=== PATIENT | male | born 1995 | race Caucasian/White ===

== ENCOUNTER 2024-09-20 09:38 | Emergency (ER) | payer OTHER, SELFPAY ==
[2024-09-20 09:44] VITALS: BP 107/66
--- NOTE | 2024-09-20 09:59 | ED.GENMED ---
History of Present Illness
General
Chief Complaint: Abdominal Symptoms
Source: patient
Exam Limitations: none
Time Seen by Provider: 09/20/24 09:49
History of Present Illness
History of Present Illness:
29yoM with no significant past medical history presenting with his father for evaluation of vomiting. Patient ate a peanut butter sandwich around 9 PM last night. About 30 minutes later, he started to have some discomfort in his abdomen with
queasiness. He tried to go to bed but woke up around 11 PM with vomiting. He has been vomiting continuously since that time and estimates that he has had about 50 episode of vomiting. He also is having diarrhea and had about 15 episodes as well
as some abdominal discomfort. He believes that he has food poisoning. Patient denies any fevers, hematemesis, hematochezia, URI symptoms, recent travel. Previous abdominal surgeries include an appendectomy.
Phy Exam
General Physical Exam
General Presentation: well appearing and no apparent distress
General age: appears stated age
General Skin: warm and dry
General Habitus: normal
General Mental: alert
ENT Exam
ENT Exam: normocephalic
Cardiovascular Exam
Cardiovascular Exam: regular rate/rhythm and no murmur
Pulmonary Exam
Pulmonary Exam: lungs clear, no respiratory distress, no rales, no crackles, no rhonchi and no wheezing
Gastrointestinal Exam
Gastrointestinal Exam: non tender, soft and non distended
Neurological Exam
Neurological Exam: alert
[place] Coma Scale
Eye Opening: Spontaneous
Verbal Response: Oriented
Motor Response: Obeys Commands
GCS Total Score: 15
Skin Exam
Skin Exam: normal color and warm/dry
Psychiatric Exam
Psychiatric Exam: normal mood/affect
Course
Orders/Labs/Results
Orders:
Orders
09/20/24 09:58
0.9% Sodium Chloride 1000 ml [Nss] 1,000 ml IV BOLUS
Ondansetron Injectable [Zofran] 4 mg IV NOW STA
09/20/24 10:09
Complete Blood Count/With Diff Urgent
Comprehensive Metabolic Panel Urgent
Lipase Urgent
Magnesium Urgent
Abnormal Lab Results
09/20/24
10:09
WBC 11.8 H 10^3/uL
(4.8-10.8)
RBC 6.11 H 10^6/uL
(4.70-6.10)
Absolute Neuts (auto) 11.1 H 10^3/uL
(1.4-6.5)
Absolute Lymphs (auto) 0.1 L 10^3/uL
(1.2-3.4)
Neutrophils % 93.7 H %
(42.2-75.2)
Lymphocytes % 0.9 L %
(20.5-51.1)
BUN 21 H mg/dl
(9-20)
Glucose 143 H mg/dl
(70-99)
Total Protein 8.3 H g/dl
(6.3-8.2)
Albumin 5.4 H g/dl
(3.5-5.0)
09/20/24 10:09
09/20/24 10:09
Vital Signs
Initial and Last Documented VS:
Initial Vital Signs
Temp Pulse Resp BP Pulse Ox
97.7 F 98 16 107/66 98
09/20/24 09:44 09/20/24 09:44 09/20/24 09:44 09/20/24 09:44 09/20/24 09:44
Last Documented Vital Signs
Temp Pulse Resp BP Pulse Ox
97.7 F 90 20 106/71 99
09/20/24 09:44 09/20/24 11:15 09/20/24 11:15 09/20/24 11:00 09/20/24 11:15
MDM/Problems Addressed
Differential Diagnosis Includes:
29yoM here with nausea, vomiting, diarrhea that began last night after eating a peanut butter sandwich. Believes he has food poisoning. VSS. Patient is well-appearing no acute distress. Abdominal exam is benign. Differential diagnosis includes
but is not limited to: Gastroenteritis, viral illness, dehydration
Initial ED plan: Check abdominal labs and magnesium. IV Zofran and fluid bolus for symptoms.
*Critical Care Note
Total Time (30-74mins, 75-104mins- exclusive of procedures): Not Applicable
Update Note
Update Note:
Labs reveal a leukocytosis with a white count of 11.8 which is likely reactive secondary to vomiting. Electrolytes within normal limits. Creatinine 1.3. On reassessment, patient is feeling significantly improved. He was able to drink an entire
bottle of armani buzz as well as water. No episodes of vomiting during ED stay and patient is requesting discharge. No indication for hospitalization at this time. Prescription provided for Zofran and supportive care discussed. Advised close PCP
follow-up and ED return precautions discussed. Patient in agreement with plan and was discharged in stable condition.
ED Attending Note
-
Portions of this chart may have been created with voice recognition software.� Occasional wrong word or��sound alike� substitutions may have occurred due to the inherent limitations of voice recognition software.
Discharge Plan
Departure
Patient Disposition: Home (Routine Discharge)
Date of Disposition: 09/20/24
Time of Disposition: 11:39
Patient with high blood pressure during this ER visit?: No
Discharge Problem:
Nausea, vomiting, and diarrhea
Instructions: Nausea and Vomiting, Adult (DC)
Prescriptions:
New
ondansetron 4 mg tablet,disintegrating
4 mg PO Q6H PRN (Reason: nausea and vomiting) Qty: 20 0RF
Referrals:
Néstor Ramirez DO [Family Provider] -
Stand Alone Forms: Return to Work
Activity Restrictions/Additional Instructions:
Take Zofran as needed for nausea. Drink plenty of fluids and advance slowly to a bland diet (bananas, rice, applesauce, toast).
Please follow-up with your family doctor. Return to the ER with any worsening symptoms or if you are unable to keep down fluids.
Interventions
Interventions:
*Risk Screen - Suicide Last Done: 09/20/24 09:44
*General Assessment Last Done: 09/20/24 10:08
*Neglect/Abuse Screening Last Done: 09/20/24 09:44
ED- Fall Risk Assessment Last Done: 09/20/24 10:08
*ED COVID-19 Vaccine History Last Done: 09/20/24 10:08
AR-Xmqcxx-Bcnkknzzbo Assessment Last Done: 09/20/24 10:08
Discharge Date and Time
Print Language: MARSHALLESE
[2024-09-20 10:07] VITALS: BP 109/82
[2024-09-20 10:08] VITALS: BMI 25.5
[2024-09-20] MEDS: NSS 1000 IV (10:10)
[2024-09-20] MEDS: ZOFRAN 4 MG IV (10:11)
[2024-09-20 10:24] LABS: % Basophils 0.3 % (0-2); % Eosinophils 0.1 % (0-6); % Immature Granulocytes 0.3 % (0-0.5); % Lymphocytes 0.9 % (20.5-51.1); % Monocytes 4.7 % (1.7-9.3); % Neutrophils 93.7 % (42.2-75.2); Absolute Lymphocytes 0.1 10^3/uL (1.2-3.4); Absolute Monocytes 0.6 10^3/uL (0.1-0.6); Absolute Neutrophils 11.1 10^3/uL (1.4-6.5); Hematocrit 50.5 % (39.0-52.0); Hemoglobin 16.8 g/dL (13.0-18.0); Mean Corp Hgb Conc. 33.3 g/dL (33.0-37.0); Mean Corpuscular Hgb 27.5 pg (27.0-31.0); Mean Corpuscular Volume 82.7 fL (80.0-94.0); Mean Platelet Volume 9.1 fL (7.4-10.4); Nucleated Red Blood Cells % 0 % (-); Platelet Count 200 10^3/uL (130-400); Red Blood Cell Count 6.11 10^6/uL (4.70-6.10); Red Cell Dist. Width 14.3 % (11.5-14.5); White Blood Cell Count 11.8 10^3/uL (4.8-10.8)
[2024-09-20 10:35] LABS: ALT (SGPT) 25 U/L (0-50); AST (SGOT) 26 U/L (17-59); Albumin 5.4 g/dl (3.5-5.0); Alkaline Phosphatase 59 U/L (38-126); Blood Urea Nitrogen 21 mg/dl (9-20); Calcium 9.8 mg/dl (8.4-10.2); Carbon Dioxide 25 mmol/L (22-30); Chloride 102 mmol/L (98-107); Estimated Creatinine Clearance 94 ml/min; Glucose 143 mg/dl (70-99); Lipase 32 U/L (23-300); Magnesium 1.7 mg/dl (1.6-2.3); Potassium 4.1 mmol/L (3.5-5.1); Sodium 141 mmol/L (135-145); Total Bilirubin 1.1 mg/dl (0.2-1.3); Total Protein 8.3 g/dl (6.3-8.2); eGFR > 60.00
[2024-09-20 11:00] VITALS: BP 106/71
== END 2024-09-20 11:53 | disposition home or self-care (01) ==
LOC: EMR 09:38
PROVIDERS: Physician Assistant; EMERGENCY PHYSICIAN Student in an Organized Health Care Education/Training Program; FAMILY PHYSICIAN Family Medicine
DX: R11.2 Nausea with vomiting, unspecified (principal); R19.7 Diarrhea, unspecified
CPT/HCPCS: 99284; 96374; 96361; 80053; 83690; 83735; 85025